=== PATIENT | female | born 1950 | race Caucasian/White ===

== ENCOUNTER 2025-05-27 10:47 | Emergency (ER) | payer OTHER ==
[~2025-05-27] VITALS: Ht 165.1 cm; Wt 54.4 kg
[2025-05-27] MEDS ORDERED: SYNTHROID75 MCG PO (11:45)
[2025-05-27] MEDS ORDERED: ATORVASTATIN CA40 MG PO (11:45)
[2025-05-27 11:48] VITALS: BP 106/62; O2SAT 70
[2025-05-27] MEDS ORDERED: TRAMADOL HCL 50 MG TABLET PO ONE (12:15)
[2025-05-27] MEDS ORDERED: TRAMADOL HCL50 MG PO (13:37)
== END 2025-05-27 14:57 | disposition home or self-care (01) ==
LOC: ER 10:47
DX: S62.102A Fracture of unspecified carpal bone, left wrist, initial encounter for closed fracture (principal); S69.92XA Unspecified injury of left wrist, hand and finger(s), initial encounter; W19.XXXA Unspecified fall, initial encounter; Y93.89 Activity, other specified; Y92.89 Other specified places as the place of occurrence of the external cause; Y99.8 Other external cause status; G89.11 Acute pain due to trauma; M25.532 Pain in left wrist; I10 Essential (primary) hypertension; E03.8 Other specified hypothyroidism

== ENCOUNTER 2025-06-01 10:00 | Day surgery (SDC) | payer OTHER ==
[2025-05-28 10:29] LABS: BASO % 1.1 % (0.1-1.2); EOS # 0.11 (0.04-0.54); EOS % 1.5 % (0.7-7.0); LYMPH # 1.23 (1.18-3.74); LYMPH % 16.6 % (19.3-53.1); MEAN PLATELET VOLUME 9.40 fl (9.4-12.4); MONO # 1.03 (0.24-0.82); NEUT # 4.93 (1.56-6.13); NEUT % 66.6 % (34.0-71.1); RED CELL DISTRIBUTION WIDTH 12.9 % (11.6-14.4)
[2025-05-28 10:32] LABS: URINE APPEARANCE Clear; URINE BILIRRUBIN Negative (NEGATIVE); URINE BLOOD Large; URINE COLOR Yellow; URINE GLUCOSE Negative (NEGATIVE); URINE KETONE 15 (NEGATIVE); URINE LEUKOCYTE Trace; URINE NITRATE Negative; URINE PROTEIN Trace (NEGATIVE); URINE UROBILINOGEN 0.2 E.U./dl
[2025-05-28 10:33] LABS: URINE BACTERIA 12.0 uL (0.0-1933); URINE EPITHELIAL CELLS 1.5 uL (0.0-38.8); URINE RBC 298.0 uL (0.0-20.8); URINE WBC 2.3 uL (0.0-23.2)
[2025-05-28 10:37] VITALS: BP 131/76
[2025-05-28 10:47] LABS: URINE CAST 0.43 uL (0.0-1.40)
[2025-05-28 11:02] LABS: INR 0.95
[2025-05-28 11:15] LABS: MONO % 13.9 % (4.7-12.5)
[2025-05-28 11:17] LABS: ALT/SGPT 28.0 U/L (12-78); AST/SGOT 21.0 U/L (15-37); BILIRUBIN TOTAL 0.73 mg/dL (0.3-1.2); BUN CREA RATIO 20.0 (7.0-25.0); CREATININE SERUM 0.83 mg/dL (0.55-1.02); GFR 67.02; GLOBULINA 3.6 G/DL (2.4-3.5); GLUCOSE FASTING 108.0 mg/dL (65-100); OSMOLALITY SERUM 287.0 MOSM/KG (275-295)
[2025-05-28 11:28] LABS: COL EPI 129 SECONDS (82-175)
[~2025-06-01] VITALS: Ht 165.1 cm; Wt 53.5 kg
[~2025-06-01 10:00] MED LIST: ATORVASTATIN CA40 MG PO; SYNTHROID75 MCG PO; TRAMADOL HCL50 MG PO
[2025-06-01] MEDS ORDERED: CEFAZOLIN SODIUM 1,000 MG VIAL IV ONE (12:00)
[2025-06-01] MEDS ORDERED: SUGAMMADEX SODIUM 200 MG/2 ML VIAL IV ONE (12:45)
== END 2025-06-01 16:30 | disposition home or self-care (01) ==
LOC: CIR.AMB 10:00
PROVIDERS: ATTEND Orthopaedic Surgery
DX: S52.572A Other intraarticular fracture of lower end of left radius, initial encounter for closed fracture (principal)
CPT/HCPCS: 25609; L8699

== ENCOUNTER 2025-06-03 13:14 | Outpatient (CLI) | payer OTHER | END 2025-06-03 13:22 | disposition home or self-care (01) | LOC: RAD 13:14 | PROVIDERS: ATTEND Orthopaedic Surgery | DX: M79.632 Pain in left forearm (principal); S52.532D Colles' fracture of left radius, subsequent encounter for closed fracture with routine healing; X58.XXXD Exposure to other specified factors, subsequent encounter ==